=== PATIENT | female | born 1975 | race Caucasian/White ===

== ENCOUNTER 2018-03-28 18:59 | Inpatient (IN) ==
[2018-03-28 20:09] LABS: Baso # (Auto) 0.1 th/mm3 (0.0-0.2); Baso % (Auto) 0.7 % (0.0-2.0); Eos # (Auto) 0.1 th/mm3 (0.0-0.4); Eos % (Auto) 0.9 % (0.0-4.0); Hematocrit 43.9 % (35.0-46.0); Hemoglobin 14.7 gm/dL (11.6-15.3); Lymph # (Auto) 3.2 th/mm3 (1.0-4.8); Lymph % (Auto) 30.3 % (9.0-44.0); Mean Corpuscular HGB Conc 33.4 % (32.0-36.0); Mean Corpuscular Hemoglobin 29.9 pg (27.0-34.0); Mean Corpuscular Volume 89.5 fL (80.0-100.0); Mean Platelet Volume 7.8 fL (7.0-11.0); Mono # (Auto) 0.8 th/mm3 (0.0-0.9); Mono % (Auto) 7.1 % (0.0-8.0); Neut # (Auto) 6.4 th/mm3 (1.8-7.7); Platelet Count 417 th/mm3 (150-450); Red Blood Count 4.91 mil/mm3 (4.00-5.30); Red Cell Distribution Width 13.4 % (11.6-17.2); White Blood Count 10.5 th/mm3 (4.0-11.0)
[2018-03-28 20:30] LABS: Alanine Aminotransferase 15 U/L (10-53); Albumin 3.4 g/dL (3.4-5.0); Anion Gap 9 meq/L (5-15); Aspartate Aminotransferase 9 U/L (15-37); Blood Urea Nitrogen 9 mg/dL (7-18); Calcium 8.6 mg/dL (8.5-10.1); Carbon Dioxide 24.3 meq/L (21.0-32.0); Chloride 107 meq/L (98-107); Glomerular Filtration Rate 75 mL/min (>89); Glucose,Random 96 mg/dL (74-106); Potassium 3.6 meq/L (3.5-5.1); Sodium 140 meq/L (136-145)
--- NOTE | 2018-03-28 20:36 | ED ---
HPI General Chief Complaint: Medical Clearance Stated Complaint: Psych KASEY VelezD Time Seen by Provider: 03/28/18 19:36 Source: patient Mode of arrival: ambulatory Limitations: no limitations History of Present Illness HPI Narrative: Patient brought in by Police Department on a Cedillo act due to patient taking 8 Xanax to try to kill herself due to being kicked out of her house. States that she did not know what else to do so wanted to end it all. She does have a history of anxiety and depression that she takes Xanax 1 mg 2 times daily for. Patient took the Xanax around 6 PM. Patient was brought to our facility around 7:15 PM complaint: Reports suicidal ideation Context: Reports significant life stressor (patient kicked out of house tonight and has no place to go); Denies recent alcohol abuse and recent drug abuse Associated psychiatric symptoms: Reports depression and suicidal ideation Associated symptoms: Denies confusion, headache, shortness of breath, nausea, vomiting, syncope and insomnia Treatments prior to arrival: Reports none Related Data Home Medications Medication Instructions Recorded Confirmed alprazolam [Xanax] 1 mg PO DAILY 03/28/18 03/28/18 dextroamphetamine-amphetamine 30 mg PO BID 03/28/18 03/28/18 [Adderall] Allergies Allergy/AdvReac Type Severity Reaction Status Date / Time penicillin G Allergy Unknown Hives Verified 03/28/18 20:23 Review of Systems ROS: all other systems reviewed are negative [facility] Medical History Medical History delivery delivered (Acute) Chronic pain syndrome (Acute) Depression (Acute) Fibromyalgia (Acute) Hypothyroid (Acute) Lupus (Acute) Social History Social History Substance History: No History of Abuse Second Hand Smoke Exposure: No Smoking Status: Never smoker How Often Do You Have a Drink Containing Alcohol: Never Recent Travel in [place] within the Last 8 Weeks: No Recent Out of Country Travel within the Last 8 Weeks: No Immunization History Tetanus Immunization: >5 Years Exam Const General: cooperative and healthy appearing Orientation: alert, awake and oriented x3 HENMT Head: normocephalic and atraumatic Nose: no nasal discharge and no epistaxis Mouth: moist mucous membranes Teeth and gingiva: poor dentition Eyes Sclera: normal sclerae Pupils: PERRL Neck Neck: trachea midline and no JVD Resp Effort & Inspection: normal respiratory effort and no use of accessory muscles Auscultation: clear to auscultation bilaterally Cardio Jugular venous pressure: no JVD Rate: regular rate Rhythm: regular rhythm Heart Sounds: no murmurs GI Inspection: non-distended Palpation: soft, no hepatosplenomegaly and nontender Skin General: dry skin (warm) Neuro General: alert and awake Cranial Nerves: other Speech: speech normal Motor: no movement abnormalities noted Extrem General: normal to inspection, no clubbing, no cyanosis and no edema Psych Speech and Movement: speech clear Mood: congruent mood Affect: normal affect and sad Thought Process: normal Judgment: judgment good Course Initial Documented Vital Signs Temperature 98.4 F 03/28/18 19:31 Pulse Rate 106 H 03/28/18 19:31 Respiratory Rate 16 03/28/18 19:31 Blood Pressure 120/70 03/28/18 19:31 Pulse Oximetry 98 03/28/18 19:31 Last Documented Vital Signs Temperature 98.4 F 03/28/18 19:31 Pulse Rate 89 03/28/18 23:23 Respiratory Rate 16 03/28/18 23:23 Blood Pressure 116/76 03/28/18 23:23 Pulse Oximetry 99 03/28/18 23:23 Medical Decision Making MDM Narrative Medical decision making narrative: Patient being brought in for Cedillo act/ suicide attempt after taking 8 1 mg Xanax. Work and be kept on a cardiac rehabilitation program director Call poison control at 8:00 PM who stated just do basic labs and keep an eye on her respiratory function during stay. She should be cleared within 4 hours Lab work was unremarkable. Urine drug screen came back for positive for amphetamines and benzodiazepines. Patient is somnolent but responsive and an O x3. Vitals have stayed normal. Patient is medically cleared at 2350 Repeat consultation with poison control states that we should add a Tylenol level Tylenol level was negative Patient will need both a psych screen and consult with Medical Screen Exam Complete: Yes Emergency Medical Condition: Yes Differential Diagnosis Differential Diagnosis: suicide attempt, depression, anxiety, benzodiazepine overdose, intoxication, substance abuse Lab Data Lab results reviewed: Yes I reviewed the patient's lab results. Result diagrams: 03/28/18 19:51 03/28/18 19:51 Lab Results 03/28/18 03/28/18 03/28/18 Range/Units 19:51 19:51 19:51 WBC 10.5 (4.0-11.0) th/mm3 RBC 4.91 (4.00-5.30) mil/mm3 Hgb 14.7 (11.6-15.3) gm/dL Hct 43.9 (35.0-46.0) % MCV 89.5 (80.0-100.0) fL MCH 29.9 (27.0-34.0) pg MCHC 33.4 (32.0-36.0) % RDW 13.4 (11.6-17.2) % Plt Count 417 (150-450) th/mm3 MPV 7.8 (7.0-11.0) fL Neut % (Auto) 61.0 (16.0-70.0) % Lymph % (Auto) 30.3 (9.0-44.0) % [place] % (Auto) 7.1 (0.0-8.0) % Eos % (Auto) 0.9 (0.0-4.0) % Baso % (Auto) 0.7 (0.0-2.0) % Neut # (Auto) 6.4 (1.8-7.7) th/mm3 Lymph # (Auto) 3.2 (1.0-4.8) th/mm3 [place] # (Auto) 0.8 (0.0-0.9) th/mm3 Eos # (Auto) 0.1 (0.0-0.4) th/mm3 Baso # (Auto) 0.1 (0.0-0.2) th/mm3 WBC Differential . Differential Comment Auto diff final Sodium 140 (136-145) meq/L Potassium 3.6 (3.5-5.1) meq/L Chloride 107 (98-107) meq/L Carbon Dioxide 24.3 (21.0-32.0) meq/L Anion Gap 9 (5-15) meq/L BUN 9 (7-18) mg/dL Creatinine 0.84 (0.50-1.00) mg/dL Estimated GFR 75 L (>89) mL/min Random Glucose 96 (74-106) mg/dL Calcium 8.6 (8.5-10.1) mg/dL Total Bilirubin 0.2 (0.2-1.0) mg/dL AST 9 L (15-37) U/L ALT 15 (10-53) U/L Alkaline Phosphatase 60 (45-117) U/L Total Protein 7.3 (6.4-8.2) g/dL Albumin 3.4 (3.4-5.0) g/dL TSH 1.830 (0.358-3.740) uIU/mL Urine Color (Yellw/Straw) Urine Clarity (Clear) Urine pH (5.0-8.5) Ur Specific Klemme (1.002-1.035) Urine Protein (Neg-Trace) mg/dL Urine Glucose (UA) (Negative) mg/dL Urine Ketones (Negative) mg/dL Urine Occult Blood (Negative) Urine Nitrate (Negative) Urine Bilirubin (Negative) Urine Urobilinogen (Less than 2) mg/dL Ur Leukocyte Esterase (Negative) Urine RBC (0-3) /hpf Urine WBC (0-5) /hpf Ur Squamous Epith Cells (0-5) /hpf Urine Mucus (Occasional) /lpf Micro UA Comment Ur Microscopic Review Urine Culture Comments Urine Opiates Screen (Neg) Acetaminophen Less than 2.0 L (10.0-30.0) mcg/mL Ur Barbiturates Screen (Neg) Ur Amphetamines Screen (Neg) U Benzodiazepines Scrn (Neg) Urine Cocaine Screen (Neg) U Cannabinoids Screen (Neg) Serum Alcohol Less than 3 (0-5) mg/dL 03/28/18 03/28/18 Range/Units 22:59 22:59 WBC (4.0-11.0) th/mm3 RBC (4.00-5.30) mil/mm3 Hgb (11.6-15.3) gm/dL Hct (35.0-46.0) % MCV (80.0-100.0) fL MCH (27.0-34.0) pg MCHC (32.0-36.0) % RDW (11.6-17.2) % Plt Count (150-450) th/mm3 MPV (7.0-11.0) fL Neut % (Auto) (16.0-70.0) % Lymph % (Auto) (9.0-44.0) % [place] % (Auto) (0.0-8.0) % Eos % (Auto) (0.0-4.0) % Baso % (Auto) (0.0-2.0) % Neut # (Auto) (1.8-7.7) th/mm3 Lymph # (Auto) (1.0-4.8) th/mm3 [place] # (Auto) (0.0-0.9) th/mm3 Eos # (Auto) (0.0-0.4) th/mm3 Baso # (Auto) (0.0-0.2) th/mm3 WBC Differential Differential Comment Sodium (136-145) meq/L Potassium (3.5-5.1) meq/L Chloride (98-107) meq/L Carbon Dioxide (21.0-32.0) meq/L Anion Gap (5-15) meq/L BUN (7-18) mg/dL Creatinine (0.50-1.00) mg/dL Estimated GFR (>89) mL/min Random Glucose (74-106) mg/dL Calcium (8.5-10.1) mg/dL Total Bilirubin (0.2-1.0) mg/dL AST (15-37) U/L ALT (10-53) U/L Alkaline Phosphatase (45-117) U/L Total Protein (6.4-8.2) g/dL Albumin (3.4-5.0) g/dL TSH (0.358-3.740) uIU/mL Urine Color Yellow (Yellw/Straw) Urine Clarity Clear (Clear) Urine pH 6.0 (5.0-8.5) Ur Specific Klemme 1.024 (1.002-1.035) Urine Protein Negative (Neg-Trace) mg/dL Urine Glucose (UA) Negative (Negative) mg/dL Urine Ketones Negative (Negative) mg/dL Urine Occult Blood Negative (Negative) Urine Nitrate Negative (Negative) Urine Bilirubin Negative (Negative) Urine Urobilinogen Less than 2 (Less than 2) mg/dL Ur Leukocyte Esterase Negative (Negative) Urine RBC 2 (0-3) /hpf Urine WBC 2 (0-5) /hpf Ur Squamous Epith Cells 2 (0-5) /hpf Urine Mucus Few H (Occasional) /lpf Micro UA Comment Cath-culture not ind Ur Microscopic Review Not Reportable Urine Culture Comments Cath-cult not ind Urine Opiates Screen Neg (Neg) Acetaminophen (10.0-30.0) mcg/mL Ur Barbiturates Screen Neg (Neg) Ur Amphetamines Screen Pos H (Neg) U Benzodiazepines Scrn Pos H (Neg) Urine Cocaine Screen Neg (Neg) U Cannabinoids Screen Neg (Neg) Serum Alcohol (0-5) mg/dL Discharge Plan Discharge Disposition Patient Disposition: 30 Still Patient Discharge Condition Condition: Stable Discharge Details Diagnosis: Suicide attempt by drug ingestion, Depressed Physicians Team ED Provider: Tate Guzmán ED Midlevel Provider: Dana Cowart Rxs /Orders / Referrals /Forms Prescriptions: No Action alprazolam [Xanax] 1 mg Tablet 1 mg PO DAILY RF: 0 dextroamphetamine-amphetamine [Adderall] 30 mg Tablet 30 mg PO BID RF: 0 Status ED Status: Medically Cleared
[2018-03-28 20:41] LABS: Alkaline Phosphatase 60 U/L (45-117); Total Protein 7.3 g/dL (6.4-8.2)
--- NOTE | 2018-03-28 21:42 | ECG ---
Date Performed: 03/28/2018 Time Performed: 20:03:32 PTAGE: 42 years EKG: Sinus rhythm NORMAL ECG No significant change from prior electrocardiogram. PREVIOUS TRACING : 12/29/2014 10.49 DOCTOR: José Gonzalez Interpretating Date/Time 03/28/2018 21:42:04
[2018-03-28 23:33] LABS: Bilirubin,Urine Negative (Negative); Clarity,Urine Clear (Clear); Color,Urine Yellow (Yellw/Straw); Glucose,Urine (UA) Negative (Negative); Leukocyte Esterase,Urine Negative (Negative); Mucus,Urine Few /lpf (Occasional); Nitrite,Urine Negative (Negative); Specific Gravity,Urine 1.024 (1.002-1.035); Squamous Epithelial Cell,Urine 2 /hpf (0-5)
[2018-03-28 23:35] LABS: Amphetamine Screen,Urine Pos (Neg); Barbiturate Screen,Urine Neg (Neg); Cannabinoid Screen,Urine Neg (Neg); Cocaine Screen,Urine Neg (Neg)
[2018-03-28 23:36] LABS: Opiate Screen,Urine Neg (Neg)
[2018-03-30] MEDS ORDERED: Aluminum/Magnesium/Simethacone Susp 30 ML UDC PO PRN (10:12)
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
--- NOTE | 2018-03-30 14:20 | P.CON ---
History of Present Illness Service: [facility] Consult date: 03/30/18 Requesting Physician: Alexis Jung Reason for Consult: Medical management Primary Care Provider: Dr. Rodriguez Chief Complaint: "I'm stressed" History of Present Illness: 42-year-old female with anxiety, depression, lupus, hypothyroidism, and fibromyalgia. [facility] consulted for medical management. She was brought here under Cedillo act by the [place] [employer] department. Per records, she took 8 Xanax to try to kill herself after being kicked out of her residence. After reviewing [facility], she takes Xanax 1 mg and Adderall 30 mg. She also states she was taking levothyroxine for her thyroid while she was but after she was told to decrease the dose. During that time, she had diarrhea and nausea which she attributed to levothyroxine so she discontinued medication. After discontinuing medication her symptoms improved. She also states she has mitral valve prolapse diagnosed in her teens. She denies pain and discomfort. Denies shortness of breath or dyspnea. Denies chest pain, palpitations, headaches, dizziness. Denies fevers, chills, nausea, vomiting, or diarrhea. Denies dysuria. Review of Systems All other systems reviewed negative except as stated in HPI PMFSH - History History Provided By: Patient - Medical History Medical History: Medical History (Last Reviewed 03/30/18 @ 10:23 by Alexis Jung MD) Depression delivery delivered Chronic pain syndrome Fibromyalgia Hypothyroid Lupus - Family History Family History: Family History (Last Updated 03/30/18 @ 14:38 by CARLY Zuluaga) Mother Heart disease - Social History I have reviewed the patient's Social History: Yes - Tobacco History Second Hand Smoke Exposure: Yes Smoking Status: Never smoker - Alcohol History How Often Do You Have a Drink Containing Alcohol: Never - Substance Use History Substance History: Active Abuse - Substance Use Type Benzodiazepines Status: Active Route Used: By Mouth Frequency: "as prescribed" Reason for Use: Calm Down, Sleep Comment: ALCOHOL IN PAST. POSITIVE FOR AMPHETAMINES. SAYS THAT THIS IS PRESCRIBED BUT SHE RAN OUT. DENIES THAT SHE HAS A SUBSTANCE ABUSE PROBLEM. MEDICAL RECORDS REVIEWED AND SUGGEST OTHERWISE - Travel History Recent Travel in the [facility] Within the Last 8 Weeks: No Recent Travel Out of the Country Within the Last 8 Weeks: No - Immunization History Tetanus Immunization: <5 Years Hx Influenza Vaccine This Season: Yes Medications and Allergies Active Medications: Active Medications Al Hydrox/Mg Hydrox/Simethicone (Mag-Al Plus Susp Liq) 30 ml PO Q6H PRN PRN Reason: DYSPEPSIA Al Hydroxide/Mg Hydroxide (Milk Of Magnesia Liq) 30 ml PO Q12H PRN PRN Reason: Mild Constipation Diphenhydramine HCl (Benadryl) 50 mg PO HS PRN PRN Reason: INSOMNIA Hydroxyzine HCl (Atarax) 50 mg PO Q6H PRN PRN Reason: ANXIETY Allergies Allergy/AdvReac Type Severity Reaction Status Date / Time penicillin G Allergy Unknown Hives Verified 03/28/18 20:23 Home Medications Medication Instructions Recorded Confirmed Type alprazolam [Xanax] 1 mg PO DAILY 03/28/18 03/28/18 History dextroamphetamine-amphetamine 30 mg PO BID 03/28/18 03/28/18 History [Adderall] Physical Exam Vital signs: Vital Signs 03/29/18 21:14 03/30/18 09:00 03/30/18 11:45 Temperature 98.6 F 98.6 F 98.5 F Pulse Rate 74 67 81 Respiratory Rate 16 18 18 Blood Pressure 102/61 113/64 132/81 Pulse Oximetry 100 98 Intake & Output 03/29/18 03/30/18 03/30/18 18:59 06:59 18:59 Weight 76.1 kg Other: Weight On Admission 76.1 kg Narrative: GENERAL: This is a well-developed patient, in no apparent distress. Laying in bed SKIN: Warm and dry. HEENT: Normocephalic. Pupils equal round and reactive. Nose without bleeding. Airway patent. NECK: Trachea midline. CARDIOVASCULAR: Tachycardia without murmurs, gallops, or rubs. RESPIRATORY: Clear to auscultation. Breath sounds equal bilaterally. No wheezes , rales, or rhonchi. GASTROINTESTINAL: Abdomen soft, non-tender, nondistended. Bowel Sounds normoactive x4. MUSCULOSKELETAL: Extremities without clubbing, cyanosis, or edema. NEUROLOGICAL: Awake and alert. Moves all extremities. Normal speech. Results - Labs CBC & Chem 7: 03/28/18 19:51 03/28/18 19:51 Assessment and Plan - Plan 42-year-old female with anxiety, depression, lupus, hypothyroidism, and fibromyalgia. [facility] consulted for medical management. She was brought here under Cedillo act by the [place] [employer] department. Anxiety, Depression with benzodiazepine and amphetamine abuse -Managed by psychiatry -UA positive for benzodiazepine and amphetamines -[facility] Prescription Drug Monitoring Database has been queried and verified , patient is taking Xanax and Adderall prescribed by Dr. Jovel Hypothyroidism -TSH normal, 1.830 -No need for medical therapy at this time. Advised patient to follow up with PCP in approximately 3 weeks to have thyroid levels rechecked. Lupus -Follow up with PCP as outpatient -Patient is following Dr. Jovel Fibromyalgia -Follow up with PCP as outpatient -No narcotic recommendation DVT prop ambulatory Thank you for this consultation. Stable from Hospitalist standpoint. We will sign off. Reconsult as needed. Thank you. Code Status: Full code Discussed Condition With: patient, nursing Discharge Planning: DC disposition by primary team
[2018-03-30] MEDS ORDERED: Haloperidol Inj 5 MG/ML Ampul IV.PUSH PRN (14:35)
--- NOTE | 2018-03-30 14:35 | P.PNPSY ---
Subjective Remarks: This is a request for second opinion. Admission note was reviewed and I agree with the history. Patient was seen and case was discussed with nursing. Patient admits to recent suicide attempt.. Recent stressors include the loss of custody of her child. At this time she does deny suicidal or homicidal ideation. She admits to Xanax use Mental Status Examination Appearance: Disheveled Consciousness: Alert Orientation: x4 Motor Activity: Other (Patient laying in bed) Speech: Unremarkable Language: Adequate Fund of Knowledge: Adequate Attention and Concentration: Adequate Memory: Unremarkable (Fair) Mood: Angry, Sad, Irritable, Other (Manipulative) Affect: Other (Slight increased range and intensity) Thought Process & Associations: Intact Thought Content: Appropriate Hallucination Type: None Delusion Type: None Suicidal Ideation: Yes Suicidal Plan: Yes Suicidal Intention: Yes Homicidal Ideation: No Homicidal Plan: No Homicidal Intention: No Insight: Poor Judgment: Poor Assessment and Plan - Assessment (1) Adjustment disorder with mixed disturbance of emotions and conduct Code(s): F43.25 - Adjustment disorder with mixed disturbance of emotions and conduct Status: Acute (2) Amphetamine abuse Code(s): F15.10 - Other stimulant abuse, uncomplicated Status: Acute (3) Benzodiazepine abuse Code(s): F13.10 - Sedative, hypnotic or anxiolytic abuse, uncomplicated Status : Acute (4) Borderline personality disorder Code(s): F60.3 - Borderline personality disorder Status: Acute - Plan Plan: We will start CIWA protocol, I agree with the first opinion to continue petition. Criteria include suicide attempt Justification for Continued Inpatient Stay: Patient would decompensate in a less restrictive setting Request Healthcare Surrogate/Guardian Advocate?: No
[2018-03-30] MEDS: LORazepam 1 MG Tablet PO PRN (23:38)
[2018-03-31] MEDS: LORazepam 1 MG Tablet PO PRN ×2 (12:59→20:20)
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
[2018-03-31] MEDS ORDERED: Sertraline 50 MG Tablet PO SCH (14:15)
[2018-03-31] MEDS: Topiramate 200 MG Tablet PO SCH (20:20)
[2018-04-01] MEDS ORDERED: Ibuprofen 600 MG Tablet PO PRN (12:32)
--- NOTE | 2018-04-01 12:38 | P.PNPSY ---
Subjective Remarks: Patient is seen in day room with nurse Briana. Chart reviewed. Patient compliant medication. Patient today complains of some headache we will offer Motrin 600mg p.o. as needed every 6 hours. She continues depressed. Though has not made any effort to call her grandparents yet. She states she is willing to go into some type of the senior living [facility]. We will have counselor work with her with that this time Review of Systems All other systems reviewed negative except as stated in HPI Mental Status Examination Appearance: Appropriate Consciousness: Alert Orientation: x4 Motor Activity: Normal gait Speech: Unremarkable Language: Adequate Fund of Knowledge: Adequate Attention and Concentration: Adequate Memory: Unremarkable (Fair) Mood: Sad, Irritable (Markedly decreased), Other (More focused and appropriate) Affect: Other (Slight increased range and intensity) Thought Process & Associations: Intact Thought Content: Appropriate Hallucination Type: None Delusion Type: None Suicidal Ideation: Yes (Softer today) Suicidal Plan: Yes (Softer today) Suicidal Intention: Yes (Softer today) Homicidal Ideation: No Homicidal Plan: No Homicidal Intention: No Insight: Poor Judgment: Poor Assessment and Plan - Assessment (1) Adjustment disorder with mixed disturbance of emotions and conduct Code(s): F43.25 - Adjustment disorder with mixed disturbance of emotions and conduct Status: Acute (2) Amphetamine abuse Code(s): F15.10 - Other stimulant abuse, uncomplicated Status: Acute (3) Benzodiazepine abuse Code(s): F13.10 - Sedative, hypnotic or anxiolytic abuse, uncomplicated Status : Acute (4) Borderline personality disorder Code(s): F60.3 - Borderline personality disorder Status: Acute - Plan Plan: Patient remains depressed this somewhat improved today suicidality is somewhat softer today. Compliant medications. We will offer Motrin for her headache we will have counselor give information about women shelters Justification for Continued Inpatient Stay: At this time patient would decompensate a place to a lower level of care Discharge Planning: To be determined patient needs to work on finding woman's senior living Request Healthcare Surrogate/Guardian Advocate?: No
[2018-04-01] MEDS: Topiramate 200 MG Tablet PO SCH (20:51)
[2018-04-02 05:51] VITALS: BP 102/55; PULSE 75; RESP 18; TEMP 98.3; O2SAT 100
[2018-04-02] MEDS: Sertraline 50 MG Tablet PO SCH ×2 (08:43→09:50)
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
== END 2018-04-02 16:45 | disposition home or self-care (01) ==
LOC: NEPD 18:59 → NEDA 03-30 10:49 → H270 03-30 11:03 → NEDA 03-30 11:03
PROVIDERS: ADMIT Psychiatry & Neurology Psychiatry; ATTEND Psychiatry & Neurology Psychiatry